=== PATIENT | male | born 1960 | race Two or more races ===

== ENCOUNTER 2024-10-18 12:32 | Emergency (ER) | payer MEDICAID, SELFPAY ==
--- NOTE | 2024-10-18 | XR_ITS ---
Examination: PA Kira chest 2 views TECHNIQUE: Upright PA and lateral chest 2 views Date and time: October 18, 2024 1524 hours INDICATIONS: Atelectasis in the right lower lobe Normal heart size No pulmonary edema IMPRESSION: Probable atelectasis in the right lower lobe, recommend short-term follow-up chest x-rays clinically warranted
[2024-10-18] MEDS: DEXAMETHASONE SOD PHOS INJ 10 MG/ML VIAL PO (13:35)
== END 2024-10-18 17:29 | disposition home or self-care (01) ==
PROVIDERS: Emergency Provider Emergency Medicine; PCP Family Medicine
DX: R05.9 Cough, unspecified (principal); R50.9 Fever, unspecified
CPT/HCPCS: 71046; 94640; 99283; J1100

== ENCOUNTER 2025-04-06 22:38 | Emergency (ER) | payer MEDICAID, SELFPAY ==
[2025-04-06 22:40] VITALS: BMI 27.9
[2025-04-06 23:19] VITALS: BP 163/81; PULSE 83; RESP 18; TEMP 36.7; O2SAT 96
--- NOTE | 2025-04-06 23:34 | EDNOTE_ITS ---
ED Skin Abcess FB-RME/HPI General Chief complaint: Skin/Abscess/Foreign Body Stated complaint: LUMP TO BACK Time Seen by Provider: 04/06/25 22:41 Source: patient, RN notes reviewed and old records reviewed Arrival date/time: 04/06/25 22:38 Mode of arrival: ambulatory Limitations: no limitations RME / HPI RME / HPI narrative: 65yom presents to ED for 3-day history of localized area of redness and swelling to left upper back. Patient was evaluated by PCP today and prescribed Keflex, he has taken 1 dose. Patient states abscess began draining tonight prompting ED visit. No fever or vomiting reported. Denies history of diabetes. Related Data Previous Rx's ?Medication ?Instructions ?Recorded Hydrocodone/Acetaminophen * (NORCO 1 tab PO Q6H PRN pa in #15 tabs 04/21/ 5/325 *) sulfamethoxazole 800 1 tab PO BID #14 tabs mg-trimethoprim 160 mg tablet (Bactrim DS) sulfamethoxazole 800 1 tab PO BID 7 days #14 tabs 04/06/25 mg-trimethoprim 160 mg tablet (Bactrim DS) Allergies Allergy/AdvReac Type Severity Reaction Status Date / Time aspirin Allergy Severe Rash Verified 04/06/25 22:40 Review of Systems Review of Systems Systems Reviewed: All systems reviewed, normal except as documented Constitutional Constitutional: Denies chills and Denies fever(s) Gastrointestinal Gastrointestinal: Denies nausea and Denies vomiting Integumentary/Breasts Comments: Reports abscess Past Medical History Surgical History OTHER SURGICAL HX: Denies past surgical history Social History SMOKING STATUS: Never smoker SUBSTANCE USE: does not use ALCOHOL: Never Past Medical History Comments PMH COMMENT: Denies past medical history ED Exam General Limitations: Present no limitations General appearance: Present alert and in no apparent distress Head Head exam: Present atraumatic and normocephalic Eye Eye exam: Present normal appearance, PERRL and EOMI ENT ENT exam: Present normal exam and mucous membranes moist Neck Neck exam: Present normal inspection and full ROM Chest Chest inspection: Present normal inspection and symmetric chest wall rise Respiratory Respiratory exam: Present normal lung sounds bilaterally; Absent respiratory distress Cardiovascular Cardiovascular exam: Present regular rate and normal rhythm Extremities Exam Extremities exam: Present normal inspection and full ROM Neurological Exam Neurological exam: Present alert and oriented X3 Psychiatric Psychiatric exam: Present normal affect and normal mood Skin Skin exam: Present other (Abscess to left upper back with erythema, induration, drainage) Course Quality Measures none Vital Signs Vital signs: Vital Signs Temperature 98.1 F 04/06/25 23:19 Pulse Rate 83 04/06/25 23:19 Respiratory Rate 18 04/06/25 23:19 Blood Pressure 163/81 H 04/06/25 23:19 Pulse Oximetry (%) 96 04/06/25 23:19 Oxygen Delivery Method Room Air 04/06/25 23:19 PROCEDURES: Procedure Comment Abscess drainage: Location: left upper back No need for incision, abscess is open and draining Moderate purulence expressed from wound Wound dressing applied Skin / Abscess / Foreign Body MDM Narrative MDM Narrative:: 65yom presents to ED for 3-day history of localized area of redness and swelling to left upper back. Patient was evaluated by PCP today and prescribed Keflex, he has taken 1 dose. Patient states abscess began draining tonight prompting ED visit. No fever or vomiting reported. Denies history of diabetes. Abscess expressed and drained in ED. Encouraged warm compresses. Continue Keflex, will add Bactrim to antibiotic regimen. Encourage closed PCP follow-up. Stable for discharge, RTED precautions given. Patient data External records reviewed:: [facility] previous records (10/11/2023 ED visit for hand cellulitis) Clinical information provided by:: patient Social determinants that could affect healthcare access:: none Patient has the following chronic illnesses:: None How is presenting disease/condition affected by chronic disease/condition?: no chronic disease Evaluation data The following diagnostics were reviewed and interpreted by me:: other (specify) (None) Lab and/or radiology exams considered but not ordered:: None Interpretation Summary: na Medications / Prescriptions Medications or Prescriptions considered but not ordered:: None Medication administrations:: None Consultations Consultation(s) initiated? (list below): No Diagnosis Skin/Abscess Differential Diagnosis: abscess of skin or subcutaneous tissue, cellulitis, eczema, insect bites and contact dermatitis Most likely diagnosis given after review of the tests above:: Abscess Admission Indicated Admission indicated?: not indicated Admission Request Was there a request for admission?: No Disposition Plan Disposition Plan: Discharge Discharge Attestation Discharge Attestation: The patient and all family members were given an opportunity to ask questions and understood the discharge instructions. Discharge instructions specifically effects, indications for sooner follow up or return to the emergency department, and the expected course of current diagnosis. Patient condition: Stable Discharge Plan Plan Patient Disposition: HOME (Self Care) Patient condition on transfer: Stable Prescriptions/Referrals Prescriptions/Med Rec: New sulfamethoxazole-trimethoprim [Bactrim DS] 800-160 mg tablet 1 tab PO BID 7 Days Qty: 14 0RF No Action Hydrocodone/Acetaminophen * (NORCO 5/325 *) 1 TAB tablet 1 tab PO Q6H PRN (Reason: pain) Qty: 15 0RF sulfamethoxazole-trimethoprim [Bactrim DS] 800-160 mg tablet 1 tab PO BID Qty: 14 0RF Problem List Clinical Impression: Abscess of back Patient/Caregiver Discharge Instructions Education Materials: ED Abscess Antibiotic ... Additional Instructions: Take both of your antibiotics as prescribed. Apply warm compresses to abscess multiple times a day. Follow-up with your primary care physician as scheduled. Print Language: Hebrew Stand Alone Forms: [employer] Award Info., Work/School Release, Patient Portal Info Letter FREDA/ARI Supervising Physician FREDA/ARI Supervising Physician: Jerome
== END 2025-04-06 23:50 | disposition home or self-care (01) ==
LOC: SERX 23:46
PROVIDERS: Emergency Provider Emergency Medicine; PCP Nurse Practitioner Family
DX: L02.212 Cutaneous abscess of back [any part, except buttock and flank] (principal)
CPT/HCPCS: 99281

== ENCOUNTER 2025-04-13 06:03 | Emergency (ER) | payer MEDICAID, SELFPAY ==
[2025-04-13 06:08] VITALS: BMI 73.2
[2025-04-13 06:28] VITALS: BP 193/92; PULSE 98; RESP 17; TEMP 36.7; O2SAT 97
--- NOTE | 2025-04-13 06:28 | EDNOTE_ITS ---
<Statement entered by Marya Robledo MD - 04/13/25 16:25> As co-signing physician, I was present and available for consult prn. I concur with the plan and care as documented by the midlevel provider. ED Skin Abcess FB-RME/HPI General Chief complaint: Skin/Abscess/Foreign Body Stated complaint: ABSCESS ON BACK Time Seen by Provider: 04/13/25 06:21 Arrival date/time: 04/13/25 06:03 65-year-old male presents to the emergency department today for abscess recheck patient was recently seen and dressing was applied patient is here for evaluation patient does report his follow-up appointment in 1 week with his PCP Limitations: no limitations Related Data Previous Rx's ?Medication ?Instructions ?Recorded Hydrocodone/Acetaminophen * (NORCO 1 tab PO Q6H PRN pa in #15 tabs 04/21/17 5/325 *) sulfamethoxazole 800 1 tab PO BID #14 tabs mg-trimethoprim 160 mg tablet (Bactrim DS) Allergies Allergy/AdvReac Type Severity Reaction Status Date / Time aspirin Allergy Severe Rash Verified 04/13/25 06:12 Review of Systems Review of Systems Systems Reviewed: All systems reviewed, normal except as documented Constitutional Constitutional: Reports system reviewed and no additional complaints, except as documented, Denies fever(s) and Denies headache(s) Eyes Eyes: Reports system reviewed and no additional complaints, except as documented and Denies blurry vision ENT Ears, Nose, Mouth, and Throat: Reports system reviewed and no additional complaints, except as documented, Denies headache(s), Denies nasal congestion and Denies nasal discharge Cardiovascular Cardiovascular: Reports system reviewed and no additional complaints, except as documented, Denies chest pain and Denies dyspnea Respiratory Respiratory: Reports system reviewed and no additional complaints, except as documented, Denies chest congestion, Denies cough and Denies dyspnea Gastrointestinal Gastrointestinal: Reports system reviewed and no additional complaints, except as documented and Denies abdominal pain Integumentary/Breasts Skin/Breast: Reports system reviewed and no additional complaints, except as documented and Denies rash Neurologic Neurologic: Reports system reviewed and no additional complaints, except as documented, Reports as per HPI and Denies headache(s) Past Medical History Social History SMOKING STATUS: Never smoker SUBSTANCE USE: does not use ED Exam General Limitations: Present no limitations General appearance: Present alert and in no apparent distress Head Head exam: Present atraumatic Eye Eye exam: Present normal appearance, PERRL and EOMI ENT ENT exam: Present normal exam, normal oropharynx and mucous membranes moist Neck Neck exam: Present normal inspection, full ROM and trachea midline Chest Chest inspection: Present normal inspection and symmetric chest wall rise Respiratory Respiratory exam: Present normal lung sounds bilaterally Cardiovascular Cardiovascular exam: Present regular rate, normal rhythm and normal heart sounds Abdominal Exam Abdominal exam: Present soft and normal bowel sounds Extremities Exam Extremities exam: Present normal inspection and full ROM Back Exam Back exam: Present normal inspection and full ROM Back 1 view image: 2 1. Infected sebaceous cyst Neurological Exam Neurological exam: Present alert, oriented X3 and CN II-XII intact Psychiatric Psychiatric exam: Present normal affect and normal mood Skin Skin exam: Present warm, dry and other (Infected sebaceous cyst upper back) Course Quality Measures none Vital Signs Vital signs: Vital Signs Temperature 98.1 F 04/13/25 06:28 Pulse Rate 98 04/13/25 06:28 Respiratory Rate 17 04/13/25 06:28 Blood Pressure 193/92 H 04/13/25 06:28 Pulse Oximetry (%) 97 04/13/25 06:28 Oxygen Delivery Method Room Air 04/13/25 06:28 O2 saturation 97% room air within the limits Skin / Abscess / Foreign Body MDM Narrative MDM Narrative:: 65-year-old male presents to the emergency department today for abscess recheck patient was recently seen and dressing was applied patient is here for evaluation patient does report his follow-up appointment in 1 week with his PCP Initially patient was taking Bactrim patient reports he did not like how it made him feel patient taking Keflex without the Bactrim On examination patient appears to have infected sebaceous cyst which he reports has improved it is draining. Explained to patient he is to continue taking his antibiotics until finished Patient was offered injection of antibiotic but declined, dressing changed Patient discharged home in no distress to follow-up with primary care doctor in the next 24 to 48 hours and for any worsening symptoms to return to the ER immediately Patient data External records reviewed:: [facility] previous records Clinical information provided by:: patient Social determinants that could affect healthcare access:: none Patient has the following chronic illnesses:: See history How is presenting disease/condition affected by chronic disease/condition?: c aused by Evaluation data The following diagnostics were reviewed and interpreted by me:: other (specify) (N/A) Lab and/or radiology exams considered but not ordered:: Considered not indicated Interpretation Summary: N/A Medications / Prescriptions Medications or Prescriptions considered but not ordered:: Given Medication administrations:: Given Consultations Consultation(s) initiated? (list below): No Diagnosis Skin/Abscess Differential Diagnosis: abscess of skin or subcutaneous tissue, cellulitis and eczema Most likely diagnosis given after review of the tests above:: Infected sebaceous cyst Admission Indicated Admission indicated?: not indicated Admission Request Was there a request for admission?: No Disposition Plan Disposition Plan: Discharge Discharge Attestation Discharge Attestation: The patient and all family members were given an opportunity to ask questions and understood the discharge instructions. Discharge instructions specifically effects, indications for sooner follow up or return to the emergency department, and the expected course of current diagnosis. Patient condition: Stable Discharge Plan Plan Patient Disposition: HOME (Self Care) Discharge Disposition comment: Stable Prescriptions/Referrals Prescriptions/Med Rec: No Action Hydrocodone/Acetaminophen * (NORCO 5/325 *) 1 TAB tablet 1 tab PO Q6H PRN (Reason: pain) Qty: 15 0RF sulfamethoxazole-trimethoprim [Bactrim DS] 800-160 mg tablet 1 tab PO BID Qty: 14 0RF Problem List Clinical Impression: Infected sebaceous cyst Patient/Caregiver Discharge Instructions Education Materials: ED Wound Check (Infection) Additional Instructions: Please keep your appointment with your PCP for worsening symptoms or concerns return immediately Print Language: Upper Sorbian Stand Alone Forms: [employer] Award Info., Patient Portal Info Letter PA/ARI Supervising Physician FREDA/ARI Supervising Physician: dr [email or web address]
== END 2025-04-13 06:34 | disposition home or self-care (01) ==
PROVIDERS: Emergency Provider Emergency Medicine; PCP Physician Assistant Medical
DX: L72.3 Sebaceous cyst (principal)
CPT/HCPCS: 99281